=== PATIENT | female | born 1990 | race Caucasian/White ===

== ENCOUNTER 2022-09-08 14:14 | Emergency (ER) | payer OTHER ==
[~2022-09-08] VITALS: Ht 162.6 cm; Wt 113.4 kg
[2022-09-08 14:18] VITALS: BP 140/94
--- NOTE | 2022-09-08 14:20 | NUR ---
Patient BIBA to bed 4.
--- NOTE | 2022-09-08 14:21 | NUR ---
32 Y/O FEMALE BIBA FROM HOME, PT STATES SHE HAS BEEN HAVING INCREASED ANXIETY AND THIRST, STATES SHE HAS BENE HVAING TROUBLE GETTING MEDICATOINS FOR BIPOLAR DISORDER AND WOULD LIKE ACCESS TO GET MEDICATIONS. DENIES PAIN, FEVER, SOB, LOC, OR SYNCOPE. GLUCOSE WAS 132 PMH: BIPOLAR, ANXIETY ALLERGY: SULFA
--- NOTE | 2022-09-08 14:30 | NUR ---
Patient being evaluated by physician at bedside.
[2022-09-08] MEDS ORDERED: LORazepam 2 MG/ML VIAL IVP ONE (14:35)
[2022-09-08] MEDS ORDERED: BUPR-160 PO (14:45)
[2022-09-08] MEDS ORDERED: VENL150C4 PO (14:45)
[2022-09-08] MEDS ORDERED: ATA25 PO (14:45)
[2022-09-08] MEDS ORDERED: VENLAFAXINE XR 75 MG CAPER PO SCH (15:25)
[2022-09-08] MEDS ORDERED: buPROPion 150 MG TABER PO ONE (15:25)
--- NOTE | 2022-09-08 15:27 | NUR ---
PT REQUESTING SEPERATE ADDRESS FOR DISCHARGE. [id number] [place] [address]
--- NOTE | 2022-09-08 15:37 | NUR ---
IV removed, catheter intact and site benign. Applied folded 4x4 gauze and tape to stop bleeding.
[2022-09-08 15:43] VITALS: BP 140/94
--- NOTE | 2022-09-08 15:44 | NUR ---
Patient discharged with v/s stable. Written and verbal after care instructions given and explained. Patient verbalized understanding. Ambulatory to [facility] All questions addressed prior to discharge. Advised to follow up with PMD.
== END 2022-09-08 15:44 | disposition home or self-care (01) ==
LOC: MED 14:14
DX: F41.9 Anxiety disorder, unspecified (principal); I10 Essential (primary) hypertension; E03.9 Hypothyroidism, unspecified; Z76.0 Encounter for issue of repeat prescription; Z88.2 Allergy status to sulfonamides; Z79.899 Other long term (current) drug therapy; Z90.49 Acquired absence of other specified parts of digestive tract; Z98.890 Other specified postprocedural states
CPT/HCPCS: 96374; 99283; J2060; 99281

== ENCOUNTER 2022-10-25 11:34 | Emergency (ER) | payer OTHER ==
[~2022-10-25] VITALS: Ht 162.6 cm; Wt 113.4 kg
[~2022-10-25 11:34] MED LIST: ATA25 PO; BUPR-160 PO; VENL150C4 PO
--- NOTE | 2022-10-25 11:34 | NUR ---
PT BIBA/BLS TO BED 6
[2022-10-25 11:53] VITALS: BP 130/90; PULSE 104; RESP 16; TEMP 98.1; O2SAT 100
[2022-10-25 12:20] VITALS: O2SAT 100
--- NOTE | 2022-10-25 12:20 | NUR ---
32YO FEMALE PT BIBA HOME C/O DIZZINESS AND GEN WEAK XTODAY. REPORTS SUDDEN EPISODE. DENIES N/V/D, INJURY, CHEST PAIN OR SOB. PT AAOX4, AMB W/ STEADY GAIT. 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 BED AT LOWEST POSITION, BED RAILS UPX2. CALL LIGHT WITHIN REACH. HX: DEPRESSION, ANXIETY, HYPOTHYROID ALLERGIES: SULFA
--- NOTE | 2022-10-25 12:20 | NUR ---
PENNY ARCEO AT BEDSIDE FOR EVALUATION
[2022-10-25] MEDS ORDERED: MECLIZINE 25 MG TAB PO ONE (12:25)
--- NOTE | 2022-10-25 12:38 | NUR ---
xray at bedside
--- NOTE | 2022-10-25 12:41 | NUR ---
lab at bedside
[2022-10-25 12:58] LABS: BASOPHILS % (AUTO) 0.5 % (0.0-2.0); EOSINOPHILS # (AUTO) 0.1 K/uL (0-0.4); EOSINOPHILS % (AUTO) 1.2 % (0.0-4.0); HEMATOCRIT 48.5 % (36-48); HEMOGLOBIN 16.2 g/dL (12.0-16.0); LYMPHOCYTES # (AUTO) 2.4 K/uL (2.5-16.5); MEAN CORPUSCULAR HEMOGLOBIN 29 pg (27-31); MEAN CORPUSCULAR HGB CONC 33 g/dL (33-37); MEAN CORPUSCULAR VOLUME 87.5 fL (80-94); MONOCYTES # (AUTO) 0.5 K/uL (0.8-1.0); MONOCYTES % (AUTO) 5.2 % (1.7-9.3); NEUTROPHILS # (AUTO) 5.8 K/uL (1.8-7.7); NEUTROPHILS % (AUTO) 66.1 % (42.2-75.2); PLATELET COUNT (AUTO) 235 K/uL (140-450); RED BLOOD CELL COUNT(AUTO) 5.54 MIL/uL (4.20-5.40); RED CELL DISTRIBUTION WIDTH 13.4 % (11.6-13.7); WHITE BLOOD COUNT (AUTO) 8.8 K/uL (4.8-10.8)
[2022-10-25 13:11] LABS: ALBUMIN 3.6 g/dL (3.4-5.0); ANION GAP 12.2 (8-16); CARBON DIOXIDE 27.8 mmol/L (21-32); CREATININE 0.9 mg/dL (0.6-1.3); TOTAL BILIRUBIN 0.5 mg/dL (0.0-1.0)
--- NOTE | 2022-10-25 13:30 | NUR ---
TRIAL AMBULATION NAV WELL NO DIZZINESS , PROVIDED MADE AWARE
[2022-10-25] MEDS ORDERED: MECL-303 PO (13:40)
[2022-10-25 13:47] VITALS: BP 122/87; PULSE 88; RESP 16; TEMP 98.1; O2SAT 100
--- NOTE | 2022-10-25 13:47 | NUR ---
Patient discharged with v/s stable. Written and verbal after care instructions FOR DIZZINESS given and explained. Patient alert, oriented and verbalized understanding of instructions. Ambulatory with steady gait. All questions addressed prior to discharge. ID band removed. Patient advised to follow up with PMD. Rx of ANTIVERT given. Opportunity to ask questions provided and answered. UBER PROVIDED HOME
--- NOTE | 2022-10-25 13:56 | NUR ---
The patient's care was reviewed and supervised by Sherry Piña RN.
== END 2022-10-25 13:47 | disposition home or self-care (01) ==
LOC: MED 11:34
DX: R42 Dizziness and giddiness (principal); I10 Essential (primary) hypertension; E03.9 Hypothyroidism, unspecified; Z79.899 Other long term (current) drug therapy; Z88.2 Allergy status to sulfonamides
CPT/HCPCS: 36415; 71045; 80053; 85025; 93005; 99285; J8597; Q0092

== ENCOUNTER 2023-08-08 14:38 | Emergency (ER) | payer OTHER ==
[~2023-08-08] VITALS: Ht 162.6 cm; Wt 117.9 kg
[~2023-08-08 14:38] MED LIST changes: +MECL-303 PO
[2023-08-08 14:50] VITALS: BP 143/93; PULSE 98; RESP 16; TEMP 98.3; O2SAT 100
[2023-08-08 15:25] VITALS: O2SAT 100
[2023-08-08 15:34] VITALS: BP 131/84; PULSE 92; RESP 14; TEMP 98.3; O2SAT 98
[2023-08-08] MEDS: KETOROLAC 60 MG/2 ML VIAL IM ONE (16:07)
[2023-08-08] MEDS ORDERED: IBUP-2213 PO (16:23)
== END 2023-08-08 16:47 | disposition home or self-care (01) ==
LOC: MED 14:38
DX: R07.89 Other chest pain (principal); M25.512 Pain in left shoulder; I10 Essential (primary) hypertension; E78.5 Hyperlipidemia, unspecified; Z90.49 Acquired absence of other specified parts of digestive tract; Z79.899 Other long term (current) drug therapy; Z88.2 Allergy status to sulfonamides
CPT/HCPCS: 93005; 96372; 99283; J1885